=== PATIENT | male | born 1965 ===

== ENCOUNTER 2020-06-30 00:49 | Emergency (ER) | payer OTHER, SELFPAY ==
[2020-06-30 00:57] VITALS: BP 137/83; PULSE 93; RESP 22; TEMP 36.8; O2SAT 96; BMI 35.9
[2020-06-30 01:25] LABS: Basophils # 0.1 10^3/uL (0.0-0.1); Basophils % 0.6 %; Eosinophils # 0.3 10^3/uL (0.0-0.8); Eosinophils % 3.2 %; Hematocrit 41.2 % (42.0-52.0); Hemoglobin 13.5 g/dL (11.7-16.6); Lymphocytes # 2.6 10^3/uL (0.8-4.8); Lymphocytes % 24.2 %; Mean Corpuscular HGB Conc 32.8 g/dL (30.0-36.0); Mean Corpuscular Volume 91.6 fL (80-94); Mean Platelet Volume 8.8 fL (7.4-10.4); Monocytes # 0.9 10^3/uL (0.2-0.9); Monocytes % 8.5 %; Neutrophils # 6.81 10^3/uL (1.8-7.7); Neutrophils % 63.2 %; Nucleated Red Blood Cells % 0 %; Platelet Count 335 10^3/cmm (130-400); White Blood Count 10.8 10^3/uL (4.0-10.0)
--- NOTE | 2020-06-30 01:30 | CTR_ITS ---
PROCEDURE INFORMATION: Exam: CT Abdomen And Pelvis With Contrast Exam date and time: 06/30/2020 1:38 AM Age: 55 years old Clinical indication: Abdominal pain; Localized; Left upper quadrant (luq); Additional info: Severe abd pain TECHNIQUE: Imaging protocol: Computed tomography of the abdomen and pelvis with intravenous contrast. Radiation optimization: All CT scans at this facility use at least one of these dose optimization techniques: automated exposure control; mA and/or kV adjustment per patient size (includes targeted exams where dose is matched to clinical indication); or iterative reconstruction. Contrast material: OMNI 300; Contrast volume: 95 ml; Contrast route: INTRAVENOUS (IV); COMPARISON: No relevant prior studies available. RADIATION DOSE METRICS: Total DLP (mGy-cm): 1730.38 FINDINGS: Pleural space: There is a tiny left pleural effusion. Strandy and patchy opacities superimposed over the pleural effusion likely representing atelectasis. However, left basilar pneumonia cannot be entirely excluded. Liver: Normal. No mass. Gallbladder and bile ducts: Normal. No calcified stones. No ductal dilation. Pancreas: Normal. No ductal dilation. Spleen: Normal. No splenomegaly. Adrenal glands: Normal. No mass. Kidneys and ureters: Normal. No hydronephrosis. Stomach and bowel: Nondilated fluid-filled loops of small are seen within the lower abdomen and mildly dilated terminal ileum is seen containing particulate bowel contents, findings that could represent small bowel stasis and enteritis. Appendix: No evidence of appendicitis. Intraperitoneal space: Unremarkable. No free air. No significant fluid collection. Vasculature: Unremarkable. No abdominal aortic aneurysm. Lymph nodes: Unremarkable. No enlarged lymph nodes. Urinary bladder: Unremarkable as visualized. Reproductive: Unremarkable as visualized. Bones/joints: Unremarkable. No acute fracture. Soft tissues: Unremarkable. CT/CT abdomen pelvis w con* [id number] IMPRESSION: 1. There are nondilated fluid-filled loops of small bowel present in the lower abdomen with a mildly dilated terminal ileum containing particulate bowel contents, findings that could represent small bowel stasis and enteritis. 2. There is a tiny left pleural effusion 3. Strandy and patchy opacities superimposed over the left pleural effusion compatible with atelectasis although a left basilar pneumonia cannot be excluded. Radiation Dose CTDIVOL = (mGy): DLP = 1730.38 (mGy-cm)
[2020-06-30 01:47] VITALS: RESP 16; O2SAT 99
[2020-06-30 01:47] LABS: Lactate (Lactic Acid level) 0.9 mmol/L (0.5-2.2)
[2020-06-30] MEDS: sodium chloride 0.9% 500 ML 999 ML IV (01:47)
[2020-06-30] MEDS: morphine 4 mg/mL SDV 1 mL IVP (01:47)
[2020-06-30] MEDS: ondansetron 2 mg/ML SDV 2 mL 4 MG IVP (01:47)
[2020-06-30 01:48] LABS: Alanine Aminotransferase 41 U/L (0-41); Albumin Level 4.3 g/dL (3.5-5.2); Alkaline Phosphatase 118 IU/L (40-130); Anion Gap 14.1 (5-19); Aspartate Amino Transferase 31 U/L (0-40); Blood Urea Nitrogen 23 mg/dL (6-20); Calcium 9.3 mg/dL (8.5-10.5); Carbon Dioxide 27 mmol/L (22-29); Chloride 102 mmol/L (98-107); Globulin 3.1 g/dL (1.3-4.6); Glomerular Filtration Rate 77.9 mL/min (90-130); Glucose 127 mg/dL (65-115); Lipase 29 U/L (13-60); Osmolality Calculated 293 mOsm/kg (285-295); Potassium 4.1 mmol/L (3.5-5.1); Sodium 139 mmol/L (136-145); Total Bilirubin 0.2 mg/dL (0.15-1.2); Total Protein 7.4 g/dL (6.6-8.7)
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
[2020-06-30] MEDS: HYDROmorphone 1 mg/mL INJ 1 mL 0.5 MG IVP ×2 (02:00→04:53)
[2020-06-30] MEDS: iohexol 300 mg/mL 100 mL Btl IV (02:17)
--- NOTE | 2020-06-30 02:41 | XRR_ITS ---
PROCEDURE INFORMATION: Exam: XR Chest, 1 View Exam date and time: 06/30/2020 2:42 AM Age: 55 years old Clinical indication: Left-sided chest pain; Additional info: Left lower lobe pneumonia? TECHNIQUE: Imaging protocol: XR of the chest Views: 1 view. COMPARISON: No relevant prior studies available. FINDINGS: Lungs: See Pleural space finding. Pleural space: The left hemidiaphragm is obscured likely secondary to small left pleural effusion. There are strandy opacities seen in the left lung base, findings that could represent atelectasis although left basilar pneumonia cannot be excluded. Heart/Mediastinum: Unremarkable. No cardiomegaly. Bones/joints: Unremarkable. XR/XR chest 1V portable [id number] IMPRESSION: 1. Probable small left pleural effusion obscuring the left hemidiaphragm. 2. Strandy opacities in the left lower hemithorax likely represents atelectasis although left basilar pneumonia cannot be excluded.
[2020-06-30 03:10] VITALS: BP 135/81; PULSE 86; RESP 19; O2SAT 95
[2020-06-30] MEDS: HYDROmorphone 1 mg/mL INJ 1 mL IVP (03:12)
[2020-06-30] MEDS: metroNIDAZOLE 500 MG Tablet PO (03:30)
[2020-06-30] MEDS: ciprofloxacin 400 MG/200 ML PREMIX 200 MG IV (03:30)
[2020-06-30] MEDS: ketorolac 30 mg/mL INJ 15 MG IVP (03:30)
[2020-06-30 03:38] LABS: Add Urine Microscopic? YES; Bilirubin Urine Neg (Negative); Blood Urine 2+ (Negative); Glucose Urine UA Norm (Normal); Ketones Urine 1+ (Negative); Leukocyte Esterase Urine Negative (Negative); Nitrate Urine Negative (Negative); Protein Urine Neg (Negative); Urine Appearance Clear (CLEAR); Urine Color Yellow (Yellow); Urobilinogen Urine Norm (Negative); pH Urine 5 (5-7)
[2020-06-30 03:49] LABS: Add Urine Culture? No; Bacteria Urine TRACE /hpf; Mucus Urine 4+ /hpf; RBC Urine 0-4 /hpf (0-2); Squamous Epithelial Cell Urine 0-4 /hpf (0-5); WBC Urine 0-4 /hpf (0-5)
[2020-06-30 05:03] VITALS: BP 137/85; PULSE 89; O2SAT 97
== END 2020-06-30 05:03 | disposition home or self-care (01) ==
PROVIDERS: Emergency Provider Nurse Practitioner Family
DX: K52.9 Noninfective gastroenteritis and colitis, unspecified (principal)
CPT/HCPCS: 12345; 51798; 71045; 74177; 80053; 81001; 83605; 83690; 85025; 96365; 96375; 96376; 99283; 99284; J0744; J1170; J1885; J2270; J2405; J7040; Q9967